=== PATIENT | female | born 1955 | race Caucasian/White ===

== ENCOUNTER → 2020-04-19 | Outpatient (CLI) | payer MEDICARE | END | disposition home or self-care (01) | LOC: LAB SHORT 14:47 → PLD 14:47 | DX: D48.5 Neoplasm of uncertain behavior of skin (principal) | CPT/HCPCS: 88305 ==

== ENCOUNTER → 2021-02-08 | Outpatient (CLI) | payer MEDICARE | LOC: LAB 11:21 → LAB SHORT 11:21 | DX: D48.5 Neoplasm of uncertain behavior of skin (principal) | CPT/HCPCS: 88305 ==

== ENCOUNTER → 2022-01-16 | Outpatient (CLI) | payer MEDICARE | END | disposition home or self-care (01) | LOC: LAB SHORT 07:57 → PLD 07:57 | DX: D22.5 Melanocytic nevi of trunk (principal) | CPT/HCPCS: 88305; 88342 ==

== ENCOUNTER → 2022-02-12 | Outpatient (CLI) | payer MEDICARE | END | disposition home or self-care (01) | LOC: LAB SHORT 15:11 | DX: D03.59 Melanoma in situ of other part of trunk (principal); L57.0 Actinic keratosis; L73.9 Follicular disorder, unspecified; L90.5 Scar conditions and fibrosis of skin | CPT/HCPCS: 88305; 88342 ==

== ENCOUNTER → 2022-07-02 | Outpatient (CLI) | payer MEDICARE | LOC: LAB SHORT 07:45 → LAB 07:45 | DX: L08.0 Pyoderma (principal) | CPT/HCPCS: 87070; 87205 ==

== ENCOUNTER 2022-11-01 07:43 | Day surgery (SDC) | payer MEDICARE ==
[~2022-11-01] VITALS: Ht 162.6 cm; Wt 75.0 kg
[2022-11-01] MEDS ORDERED: IBUP200 (08:05)
[2022-11-01 10:14] VITALS: BP 123/84
--- NOTE | 2022-11-01 10:15 | NUR ---
11/01/22 1015 Rajan Anguiano IV REMOVED INTACT. SITE WNL.
== END 2022-11-01 10:09 | disposition home or self-care (01) ==
LOC: ORSCSDS 07:43
PROVIDERS: Surgery
PROC: 0DJD8ZZ Inspection of Lower Intestinal Tract, Via Natural or Artificial Opening Endoscopic (ICD-10-PCS; principal; 2022-11-01 09:15)
DX: Z12.11 Encounter for screening for malignant neoplasm of colon (principal); Z86.010 Personal history of colon polyps; Z83.71 Family history of colonic polyps; K57.30 Diverticulosis of large intestine without perforation or abscess without bleeding; E78.5 Hyperlipidemia, unspecified
CPT/HCPCS: J2704; J7120